=== PATIENT | male | born 1955 | race Caucasian/White ===

== ENCOUNTER 2016-12-19 08:01 | Inpatient (IN) | payer OTHER ==
[~2016-12-19] VITALS: Ht 182.9 cm; Wt 102.5 kg
[2016-12-19] VITALS (11 sets, daily range): BP systolic 129–156; BP diastolic 78–96
--- NOTE | 2016-12-19 09:44 | Anethesia Preoperative Eval ---
Anesthesia Pre-op PMH/ROS General Date of Evaluation: Dec 19, 2016 Time of Evaluation: 11:34 Anesthesiologist: Sobia ASA Score: ASA 3 Mallampati Score Class I : Soft palate, uvula, fauces, pillars visible Class II: Soft palate, uvula, fauces visible Class III: Soft palate, base of uvula visible Class IV: Only hard plate visible Mallampati Classification: Class III Surgeon: Cira Diagnosis: Neck Pain Surgical Procedure: ACDF C5-6C6-7 Anesthesia History: none Social History: smoking Family History: no anesthesia problems Allergies: Coded Allergies: SULFA (SULFONAMIDE ANTIBIOTICS) (Verified Allergy, Intermediate, itch; nausea, 12/19/16) Medications: see eMAR Past Medical History Cardiovascular: Reports: HTN Pulmonary: Reports: other - Smoker Musculoskeletal/Integumentary: Reports: other - Basal Cell CA PSxH Narrative: Cholecystectomy, L Elbow Sx, L Finger SX Anesthesia Pre-op Phys. Exam Physician Exam Last Vital Signs Date Time Temp Pulse Resp B/P Pulse Ox O2 Delivery O2 Flow Rate FiO2 12/19/16 09:03 98.3 68 20 132/78 96 Room Air Constitutional: NAD Neurologic: CN 2-12 intact Cardiovascular: RRR Respiratory: CTA Airway Exam Mallampati Score: Class III MO: limited ROM: limited Teeth: intact Anesthesia Pre-op A/P Risk Assessment & Plan Assessment: ASA 3 Plan: GA, BIS, Glidescope Status Change Before Surgery: No Pre-Antibiotics Dru Grams Ancef IV Given Within 1 Hr of Incision: Yes Time Given: 11:51 Gilles Ramsay MD Dec 19, 2016 09:44
--- NOTE | 2016-12-19 11:22 | Pre-Procedure Note/Attestation ---
Pre-Procedure Note/Attestation Complete Prior to Procedure Procedure Narrative: anterior cervical discectomy and fusion and instrumentation at c56 and c67 Indications for Procedure Pre-Operative Diagnosis: hnp with cervical radiculopathy Attestation I attest that I discussed the nature of the procedure; its benefits; risks and complications; and alternatives (and the risks and benefits of such alternatives ), prior to the procedure, with the patient (or the patient's legal sales representative). I attest that, if there was a reasonable possibility of needing a blood transfusion, the patient (or the patient's legal sales representative) was given the [facility] standardized written summary, pursuant to the [place] Blood Safety Act ([place] Health and Safety Code # 1645, as amended). I attest that I re-evaluated the patient just prior to the surgery and that there has been no change in the patient's H&P, except as documented below: KEITH HUDSON Dec 19, 2016 11:22
[2016-12-19] MEDS ORDERED: Vancomycin 1gm inj IVPB ONE (11:30)
[2016-12-19] MEDS ORDERED: NS Irrig 1000ml ONE (11:30)
[2016-12-19] MEDS ORDERED: fentaNYL 100 mcg/2 mL IV ONE (11:30)
[2016-12-19] MEDS ORDERED: Lidocaine 1% Plain 30 ml INJ ONE (11:30)
[2016-12-19] MEDS ORDERED: Zemuron 50mg/5ml Inj IV ONE (11:30)
[2016-12-19] MEDS ORDERED: Neostigmine 1mg/ml 10ml Inj ONE (11:30)
[2016-12-19] MEDS ORDERED: Glycopyrrolate 0.2mg/ml 1ml Vial ONE (11:30)
[2016-12-19] MEDS ORDERED: Bupivacaine w/Epi 0.5% 30ml Vial INJ ONE (11:30)
[2016-12-19] MEDS ORDERED: LR 1000ml ONE (11:30)
[2016-12-19] MEDS ORDERED: Thrombin 5000 units TOPIC ONE (11:30)
[2016-12-19] MEDS ORDERED: Bacitracin 50000 Units Vial ONE (11:30)
[2016-12-19] MEDS ORDERED: fentaNYL 250mcg/5ml ONE (11:30)
[2016-12-19] MEDS ORDERED: Sterile Water Irrig 1000ml IRRIG ONE (11:30)
[2016-12-19] MEDS ORDERED: Dexamethasone 4mg/ml vial ONE (11:30)
[2016-12-19] MEDS ORDERED: Propofol 10mg/ml 100ml btl IV ONE (11:30)
[2016-12-19] MEDS ORDERED: NS Irrig 1000ml IRRIG ONE (11:45)
[2016-12-19] MEDS ORDERED: LR 1000ml 1,000 ML IVLG SCH (12:29)
[2016-12-19] MEDS ORDERED: fentaNYL 100 mcg/2 mL IV PRN (12:30)
[2016-12-19] MEDS ORDERED: Ketorolac 60mg Inj IV PRN (12:30)
[2016-12-19] MEDS ORDERED: Labetalol 5mg/ml 20ml vial IV PRN (12:30)
[2016-12-19] MEDS ORDERED: Oxycodone/Acetaminophen 5-325 ORAL PRN (12:30)
[2016-12-19] MEDS ORDERED: Atropine Inj 1mg/10ml Syr IV PRN (12:30)
[2016-12-19] MEDS ORDERED: Meperidine 25mg/ml Inj IV PRN (12:30)
[2016-12-19] MEDS ORDERED: Metoclopramide 10mg/2ml Inj IVP PRN (12:30)
[2016-12-19] MEDS ORDERED: LORazepam Inj 2mg/ml 1ml IV PRN (12:30)
[2016-12-19] MEDS ORDERED: Midazolam 2mg/2ml Inj IVP PRN (12:30)
[2016-12-19] MEDS ORDERED: Ketorolac 30mg Inj IV PRN (12:30)
[2016-12-19] MEDS ORDERED: DiphenhydrAMINE 50mg/ml Inj IVP PRN (12:30)
[2016-12-19] MEDS ORDERED: Norco 5mg/325mg tab ORAL PRN ×2 (12:30→19:00)
[2016-12-19] MEDS ORDERED: Norco 7.5mg/325mg tab ORAL PRN ×3 (12:30→19:00)
[2016-12-19] MEDS ORDERED: Hydromorphone 0.5mg/0.5ml inj IVP PRN (12:30)
--- NOTE | 2016-12-19 12:48 | Immediate Post-Op Evaluation ---
Immediate Post-Op Evalulation Immediate Post-Op Evalulation Procedure: ACDF C5-6, C6-7 Date of Evaluation: Dec 19, 2016 Time of Evaluation: 15:59 IV Fluids: 1200 LR Blood Products: 0 Estimated Blood Loss: 100 Urinary Output: 200 Blood Pressure Systolic: 156 Blood Pressure Diastolic: 96 Pulse Rate: 85 Respiratory Rate: 18 O2 Sat by Pulse Oximetry: 98 Temperature (Fahrenheit): 98.2 Pain Score (1-10): 3 Nausea: No Vomiting: No Complications 0 Patient Status: awake, reacts, patent, extubated, none Hydration Status: adequate Dru Grams Ancef IV Given Within 1 Hr of Incision: Yes Time Given: 11:51 Gilles Ramsay MD Dec 19, 2016 12:48
[2016-12-19] MEDS ORDERED: Acetaminophen (Non formulary) 100 ML IV ONE (13:00)
--- NOTE | 2016-12-19 15:44 | Brief Operative Note ---
Immediate Post Operative Note Operative Note Pre-op Diagnosis: hnp with cervical radiculopathy Procedure: acdf c56 and c67 Post-op Diagnosis: same as pre-op Findings: consistent w/pre-op dx studies Surgeon: kevin Rod Filler: laura Anesthesiologist: bowen Anesthesia: general Specimen: none Complications: none Condition: stable Fluids: 1200cc Estimated Blood Loss: volume - 100cc Drains: none Implant(s) used?: No KEITH HUDSON Dec 19, 2016 15:44
[2016-12-19] MEDS ORDERED: Naloxone 0.4mg/ml Inj IVP PRN (19:00)
[2016-12-19] MEDS ORDERED: HYDROmorphone 1mg/ml Carpuject SUBQ PRN (19:00)
[2016-12-19] MEDS ORDERED: HYDROmorphone 1mg/ml Carpuject IVP PRN (19:00)
[2016-12-19] MEDS: D5 1/2NS 1,000 ML IV SCH (19:19)
[2016-12-19] MEDS: Docusate 100mg cap ORAL SCH ×2 (21:00→21:29)
[2016-12-19] MEDS: ceFAZolin sod 1 GM in D5W 55 ML IV SCH (21:29)
[2016-12-20] VITALS: BP 150/91
[2016-12-20] MEDS: ceFAZolin sod 1 GM in D5W 55 ML IV SCH ×2 (05:56→14:07)
[2016-12-20] MEDS: D5 1/2NS 1,000 ML IV SCH (05:57)
[2016-12-20 08:00] VITALS: BP 136/75
[2016-12-20] MEDS: Docusate 100mg cap ORAL SCH (09:30)
--- NOTE | 2016-12-20 10:15 | 48 Hour Post Anesthesia Eval ---
Post Anesthesia Evaluation Procedure: ACDF C5-6, C6-7 Date of Evaluation: Dec 20, 2016 Time of Evaluation: 11:35 Blood Pressure Systolic: 136 0: 75 Pulse Rate: 91 Respiratory Rate: 20 Temperature (Fahrenheit): 98.2 O2 Sat by Pulse Oximetry: 97 Airway: patent Nausea: No Vomiting: No Pain Intensity: 2 If pain is > 6 Comment: Patient managing pain without much medication. Doing well Hydration Status: adequate Cardiopulmonary Status: Stable Mental Status/LOC: patient returned to baseline Follow-up Care/Observations: As per surgery Post-Anesthesia Complications: No anesthetic complication Follow-up care needed: N/A CHITO NIEVES M.D. Dec 20, 2016 10:15
[2016-12-20 12:00] VITALS: BP 122/70
[2016-12-20 16:00] VITALS: BP 141/78
[2016-12-20] MEDS ORDERED: D5 1/2NS 1000ml IV ONE (17:59)
--- NOTE | 2016-12-20 18:34 | General Progress Note ---
Progress Note Progress Note doing well min to no pain o: inc cdi 5/5 in the ue calves soft and nt ambulating well O: doing well P: oob dc today fu in 7 to 10 days. KEITH HUDSON Dec 20, 2016 18:34
--- NOTE | 2016-12-21 10:25 | Diagnostic Imaging Report ---
Indication: PAIN, numbness, intraoperative imaging Technique: Digital intraoperative images Comparison: None Findings: Initial image demonstrates surgical tool projecting over the C5 vertebral body, subsequently surgical tool projecting anterior to the C5-6 disc. Subsequent images demonstrate anterior surgical fusion of C5-C7 with placement of disc spacers Impression: Intraoperative imaging, as described
--- NOTE | 2016-12-21 13:47 | Operative Note - Dictated ---
DATE OF OPERATION: 12/19/2016 PREOPERATIVE DIAGNOSIS: C5-C6 and C6-C7 disk herniations with stenosis and upper extremity radiculopathy. POSTOPERATIVE DIAGNOSIS: C5-C6 and C6-C7 disk herniations with stenosis and upper extremity radiculopathy. PROCEDURES PERFORMED: 1. Interbody arthrodesis at C5-C6 and C6-C7. 2. Anterior cervical instrumentation at C5-C6 and C6-C7. 3. Anterior cervical radical diskectomy with decompression of the spinal cord and anterior foramina with partial vertebrectomy of C6. 4. Autologous bone harvest. 5. Placement of peek at C5-C6 and C6-C7 with allograft and autograft. 6. Intraoperative use of fluoroscopy. 7. Intraoperative use of microscope. 8. SSEP/MET/EMG monitoring. SURGEON: Blaise Denis M.D. OFFICE SYSTEMS TECHNOLOGY INSTRUCTOR: Andre Orta M.D. ANESTHESIA: General endotracheal anesthesia. ANESTHESIOLOGIST: Gilles Ramsay M.D. EBL: 100 mL intravenous antibiotics 2 g of Ancef. COMPLICATIONS: None. BACKGROUND INSTRUCTIONS: This is a pleasant gentleman, who presented with neck pain and upper extremity radicular pain who failed nonoperative treatments and option for above. Treatment was given. Risks, alternatives, and benefits were discussed with the patient at length. Risks include, but are not limited to, anesthesia complications including , medical complications including liver, kidney cardiopulmonary deficits shows bleeding, infection, dysphonia, dysphagia, hematoma of the neck, nerve root injury, paralysis, spinal cord injury, CSF leak dural tear fracture of the hardware, loosening of the hardware, need for revision decompression and fusion, swallowing difficulties esophageal injury tracheal injury recurrent laryngeal nerve injury as well as the other complications including compartment syndrome, The patient understood and wished to proceed. All the patient's questions were answered. Written and verbal consent was given. No guarantees were given. OPERATIVE FINDINGS: Herniated nucleus pulposus at C5-C6 and C6-C7 with nerve root impingement, spinal cord compression. Stenosis at C5-C6 and C6-C7. DESCRIPTION OF OPERATION: The patient was brought into the operating room supine on a stretcher. Appropriate IV lines were placed by the anesthesiologist. A 2 g of Ancef was administered. A surgical time-out was called. The patient was induced and intubated without complication. The patient was positioned on the operating room table. The neck was placed in neutral alignment. The arms were tucked by the sides. All bony prominences were well padded as well as extremities. SSEP/EMG/and EP monitoring leads were placed and remained at baseline at the end of the case. Preoperative fluoroscopy revealed the planned incision to be on the right side over the C5, C6, and C7 vertebral bodies. Fluoroscopy showed the neck to be in adequate alignment. The neck was prepped and draped in the usual sterile fashion with alcohol, chlorhexidine scrub, and ChloraPrep. At this point, me and my rehab care assistant were prepped and gowned appropriately. An incision was carried out with the scalpel on the anterior right side of the neck. Hemostasis was achieved with bipolar cautery. The platysma was incised. Blunt dissection was carried out. The interval between the strap muscles and sternocleidomastoid. Superficial cervical fascia was dissected caudally as well cephalad. Carotid pulse was palpated and found to be lateral to the field of dissection. Deep cervical fascia was encountered. Once the deep cervical fascia was found, blunt dissection was carried out with PICC nurse as well as finger dissection to find the prevertebral space. The longus coli was subperiosteally dissected off of the spine at the C5, C6, and C7 level. Spinal needle was placed at the C5-C6 and C6-C7 levels were identified via lateral fluoroscopy leather belt shaper retractors were set into place. The whole case was done with some intraoperatively sterilely draped microscope attention was first diverted to the C6-C7 level. With a fresh #15 scalpel as well as straight curved curette #1, #2, #3 of Kerrison punches a radical diskectomy was accomplished at C5-C6. With Kerrison punches as well as a high speed drill, the inferior endplate and part of the body of the C6 vertebra was removed to access the spinal canal and for full spinal canal decompression and spinal cord decompression as well as decompression of the exiting nerve roots through the anterior portion of the foramina. Endplate cartilage was removed. Endplate bone was well preserved at C7. Attention now diverted to the posterior longitudinal ligament. With a Microset #1 and #2 curettes, posterior longitudinal ligament was removed. All disc herniation was removed and there was a disc herniation compressing the spinal cord as well as compressing the lateral recess of the spinal cord and the exiting nerve roots. A complete foraminotomy anteriorly was accomplished with #1 and #2 Kerrison punches. At this point, final check of the spinal canal of the lateral recesses and foramina was done and complete decompression inhaled. The spinal cord and nerve roots were found to be decompressed. Now retractors were moved to the C5-C6 level and with the same instrument scalpel straight and curved curettes pituitary rongeurs. A #1, #2, and #3 Kerrison punches as well as micro set curette a radical diskectomy was done. Endplate cartilage was removed. Endplate bone was well preserved. The PLL was gently removed. All disk herniation was removed and a complete decompression of the spinal canal, the spinal cord, the lateral recess, and foramina including the exiting nerves at C5-C6 was accomplished. A final check was done and there was complete decompression Valsalva 40 mmHg was done. There was no CSF leak. Attention now was diverted to trials for placing the implants from the spinal elements system trials were used and a 7 mm peak interbody device lordotic in shape was chosen for both levels was packed with allograft graft on putty as well as autograft preserved from the partial vertebrectomy and placed at the C5-C6 and C6 levels with good recreation of lordosis and excellent apposition against the bony parts of the vertebral bodies. The lateral fluoroscopy was done and the PEEK interbody devices were found to be in excellent position now. The PEEK interbody devices were from the spinal element system now a [place] aspects cervical plate was chosen 32 mm in length. This was a two-level plate was contoured appropriately lordotically to the anterior surface of the C5, C6, C7 vertebral bodies and with 4.0 and 4.5 mm x 16 mm screws were fixed to the anterior surface of the C5, C6, C7 vertebral bodies with excellent purchase at each screw and each screw sat below the locking mechanism appropriately. Final AP and lateral fluoroscopy was done and there was excellent positioning of all instrumentation. Hemostasis was achieved. The wound throughout the case was copiously irrigated with triple antibiotic solution as well as the disk spaces once decompression was done before the implantation of the instrumentation and at this. At this point, hemostasis was done with Gelfoam cautery, FloSeal bipolar cautery and attention was diverted to closure. There was no bleeding and therefore decision was made not to use a Hemovac. Attention was now diverted to the platysma. The tip of the platysma was closed with 2-0 Vicryl two sutures. The subdermal and subcuticular layers were closed with 3-0 Vicryl sutures in a watertight interrupted fashion. The skin was closed with Dermabond. Sterile dressing tape was placed. C-collar was placed. The patient was extubated in stable condition, was taken to the recovery room in stable condition, and was found to be neurovascularly intact. Postoperative instructions given as well as a postoperative prescription. The patient was admitted to the hospital for monitoring. Blaise Denis M.D. DR: RENATO JOB#: [id number] CC:
--- NOTE | 2016-12-21 19:32 | Discharge Summary ---
Discharge Summary Hospital Course Date of Admission Dec 19, 2016 at 08:01 Date of Discharge Dec 20, 2016 at 18:00 Admitting Diagnosis HPI Trevin Hurtado is a 61 year old male who was admitted on Dec 19, 2016 at 08:01 for Cervical Radiculopathy Hospital Course [id number] Discharge Discharge Disposition Patient was discharged to Home (01) Discharge Diagnoses: Katherin Anaya NP Dec 21, 2016 19:32
--- NOTE | 2016-12-22 10:48 | Discharge Summary 2 SIG ---
DATE OF ADMISSION: 12/19/2016 DATE OF DISCHARGE: 12/20/2016 BRIEF HOSPITAL COURSE: The patient is a 61-year-old male who presented with neck pain and upper extremity radicular pain, who failed non operative treatment options. He was admitted on 12/19/2016 and underwent ACDF of C5-C6 and C6-C7. Postoperatively, he was given pain management. He was initially started with clear liquid diet and was advanced as tolerated. He underwent physical therapy and occupational therapy. The patient was eventually discharged home. FINAL DIAGNOSES: C5-C6 and C6-C7 disk herniation with stenosis and upper extremity radiculopathy status post interbody arthrodesis at C5-C6 and C6-C7 with anterior cervical instrumentation, anterior cervical radical diskectomy with decompression of the spinal cord and anterior foramina with partial vertebrectomy of C6 . Blaise Denis M.D. I have been assigned to dictate discharge summary on this account and I was not involved in the patient's management. Katherin Anaya N.P. DR: Dustin JOB#: [id number] CC: BILLY
== END 2016-12-20 18:00 | disposition home or self-care (01) | DRG 473 ==
LOC: SDSOVERFLO 08:01 → 3E 17:39
PROC: 0RT30ZZ Resection of Cervical Vertebral Disc, Open Approach (ICD-10-PCS; principal; 2016-12-19 11:30)
PROC: 0RG20A0 Fusion of 2 or more Cervical Vertebral Joints with Interbody Fusion Device, Anterior Approach, Anterior Column, Open Approach (ICD-10-PCS; principal; 2016-12-19 11:30)
PROC: 0RG2070 Fusion of 2 or more Cervical Vertebral Joints with Autologous Tissue Substitute, Anterior Approach, Anterior Column, Open Approach (ICD-10-PCS; principal; 2016-12-19 11:30)
DX: M50.123 Cervical disc disorder at C6-C7 level with radiculopathy (principal); M48.02 Spinal stenosis, cervical region; E66.9 Obesity, unspecified; Z68.30 Body mass index [BMI] 30.0-30.9, adult
CPT/HCPCS: 36415; 72040; 76001; 86850; 86900; 86901; 87081; 94003; 94150; J2180; J2405; J2710